=== PATIENT | male | born 1950 | race Caucasian/White ===

== ENCOUNTER 2018-09-01 05:26 | Day surgery (SDC) | payer MEDICARE, OTHER ==
[~2018-09-01] VITALS: Ht 182.9 cm; Wt 120.5 kg
[~2018-09-01 05:26] MED LIST: COZAAR50 MG PO; NEXIUM20 MG PO
[2018-09-01 05:47] LABS: BASOPHILS 0.2 % (0-2); EOSINOPHILS 3.9 % (0-7); HEMATOCRIT 39.5 % (42.0-54.0); HEMOGLOBIN 13.6 g/dL (13.5-17.5); IMMATURE GRANULOCYTES 0.2 % (0-5); LYMPHOCYTES 22.9 % (15-50); MCH 30.6 pg (26.0-34.0); MCHC 34.4 g/dL (31.0-37.0); MEAN PLATELET VOLUME 9.9 fL (7.4-10.4); MONOCYTES 8.6 % (2-11); NEUTROPHILS 64.2 % (40-80); PLATELET COUNT 246 10x3/uL (130-400); RBC 4.44 10x6/uL (4.20-6.10); RDW 13.6 % (11.5-14.5); WBC 5.5 10x3/uL (4.8-10.8)
[2018-09-01 06:06] LABS: ANION GAP 10.3 mmol/L (8-16); CALCIUM 8.6 mg/dL (8.5-10.1); CARBON DIOXIDE 27.7 mmol/L (21.0-32.0); CREATININE - SERUM 1.2 mg/dL (0.6-1.3)
[2018-09-01 06:29] VITALS: Ht 182.9 cm; Wt 120.5 kg
--- NOTE | 2018-09-01 10:13 | NUR ---
1005 DRESSED. AWAKE & ALERT SITTING UP IN CHAIR @ BEDSIDE. GIVEN DISCHARGE INFORMATION INCLUDING: MED REC, SHEET LISTING HIGH FIBER FOODS, & [facility] POST ENDOSCOPY D/C INSTRUCTIONS. NO FOLLOW UP APPT. NEEDED. PT & VOICE UNDERSTANDING. TO PRIVATE CAR PER WHEELCHAIR BY VOLUNTEER. HOME WITH MRS. MANUEL. Eddie PATEL R.N.
--- NOTE | 2018-09-01 13:55 | OP ---
PATIENT NAME: RAVI MANUEL MEDICAL RECORD: [id number] :46 LOCATION:D[facility] ADMISSION DATE: SURGEON: NAKUL SPICER MD DATE OF OPERATION: 09/01/2018 PREOPERATIVE DIAGNOSIS: History of colon polyps, in need of surveillance colonoscopy. POSTOPERATIVE DIAGNOSES: History of colon polyps, in need of surveillance colonoscopy with no new colon polyps. PROCEDURE: Total colonoscopy. SURGEON: Nakul Spicer MD SHOE SINGER: None. BLOOD LOSS: Minimal. ANESTHESIA: IV sedation. COMPLICATIONS: None. The risks, possible complications and alternatives to the procedure were explained to the patient. He elects to proceed. ENDOSCOPIC COURSE: The patient was conveyed to endoscopy suite electively on 09/01/2018. IV sedation was induced by the anesthesia staff. The patient was placed in the Huang position. A digital rectal examination was performed. A colonoscope was inserted through the anus. It was advanced with difficulty to the ileocecal valve. I slowly withdrew the endoscope. A combination of normal imaging and narrow band imaging were utilized. I dragged the folds. The prep was excellent. The patient had mild left-sided diverticulosis. A retroflexed view was obtained in the rectum. I then unretroflexed the scope and removed it under direct vision. The pullback was greater than 18-minute pullback. I will see the patient on a p.r.n. basis. There is no need for him to follow up with me in the office. We will plan for his next colonoscopy to take place in 3 years. TRANSINT:[id number] Voice Confirmation ID: [id number] DOCUMENT ID: [id number] NAKUL SPICER MD at 1355 CC: MICHAEL RAMOS DO [id number] DICTATION DATE: 09/01/18 0925 TRIM TECHNICIAN: 09/01/18 1000 [facility] 09/01/18 [place] [address]
--- NOTE | 2018-09-01 13:55 | HP ---
PATIENT: RAVI MANUEL MEDICAL RECORD: [id number] ACCOUNT: [id number] LOCATION:[facility] : 46 ADMISSION DATE: 09/01/18 PCP: MICHAEL RAMOS DO HISTORY AND PHYSICAL EXAMINATION CHIEF COMPLAINT: History of colon polyps. HISTORY OF PRESENT ILLNESS: Back in 2014, he had tubular adenoma of the ascending colon. He is here for surveillance colonoscopy. He has had no rectal bleeding. No abdominal pain. He states that he is very satisfied with the hemorrhoid procedure that he had several years ago, which I performed. HOME MEDICINES: Nexium as well as Cozaar. ALLERGIES: No known drug allergies. SOCIAL HISTORY: Nonsmoker. PAST MEDICAL AND SURGICAL HISTORY: Sleep apnea, hypertension, gastroesophageal reflux as well as obesity. PHYSICAL EXAMINATION: GENERAL: The patient does not appear acutely ill. He does not appear chronically ill. VITAL SIGNS: Reviewed. HEAD: He has a kaleb face. EARS: External ears are normal. EYES: Extraocular movements are intact. NECK: Trachea is midline. CHEST: No intercostal retractions. PULMONARY: Nonlabored. No stridor. ABDOMEN: No peritonitis. IMPRESSION: History of colon polyps. PLAN: Plan will be surveillance colonoscopy. TRANSINT:[id number] Voice Confirmation ID: [id number] DOCUMENT ID: [id number] KATIE SPICER MD at 1355 CC: [id number] DICTATION DATE: 09/01/18 0846 LINK CUTTER: 09/01/18 0907 [facility] 09/01/18 [id number] [place] [address]
== END 2018-09-01 10:05 | disposition home or self-care (01) ==
LOC: D.OPS 05:26
PROVIDERS: Anesthesiology; ATTEND Surgery
DX: Z12.11 Encounter for screening for malignant neoplasm of colon (principal); K57.30 Diverticulosis of large intestine without perforation or abscess without bleeding; Z86.010 Personal history of colon polyps; Z01.812 Encounter for preprocedural laboratory examination